=== PATIENT | male | born 1950 | race Caucasian/White ===

== ENCOUNTER 2025-05-22 08:37 | Outpatient (AMB) | payer MEDICARE, SELFPAY ==
--- NOTE | 2025-05-22 09:04 | AM.OFFWIN_ITS ---
Intake Vital Signs 05/22/25 09:05 Height 5 ft 8 in Weight 194 lb BMI 29.5 BP 80/56 L Blood Pressure Location Lt brachial Position Sitting Pulse 64 Pulse Source Pulse Oximeter Temp 97.9 F Temp Source Oral Pulse Oximetry (%) 98 Oxygen Delivery Method Room Air Intake Visit Reasons: [employer] Swollen & itchy LT eye Intake Note: presents with redness and swelling to face, right forearm and left eye and also with weeping to left eye 2 days Allergies No Known Allergies Allergy (Verified 05/22/25 09:07) Do you need a note to return to daycare/school/sports/work: No HPI HPI Comments History of Present Illness Details History of Present Illness - The patient is a 75-year-old male pres enting with swelling and redness around the left eye. - The swelling began after a visit to [facility] on Monday. - He states that he has no pain and does not know what he was exposed to. - His is present today she was the one that noticed swelling to the left eye Monday night. - By Monday morning, the eye was swol nevaeh shut, and leaking fluid. - He was red and swollen. - The condition has spread to the nose a nd face, with new red [place] appearing on top of his head. - Ice was applied without significant im provement. - Recent cataract surgery on the right e ye may be relevant. - He has a spot on his right forearm now . - He states that he has been feeling fin e. - He denies fever, chills, CP, SOB, whee zing, lip swelling, stridor, abd pain, n/v/d, joint pain or other rashes. Physical Exam General: Cooperative, healthy appearing, comfortable, no acute distress and well developed Head: Normal to inspection Ears: Swelling and erythema noted on the upper and lower eyelid of the left eye. Left eye discharge. PERRLA, EOMI. Periorbital swelling noted. Swellin to the right upper eyelid. Nose: Swollen with erythema and crusting noted. Face and sinus: Erythematous diffuse rash noted on the face bilaterally. No TTP of the facial bones. Eyes: Right eye swollen with periorbital cellulitis, recent cataract surgery noted Neck: Normal visual inspection and Yes full ROM. No lymphadenopathy noted. Respiratory: Normal respiratory effort and able to speak in complete sentences. Clear to auscultation bilaterally. No w/r/r noted. Cardiovascular: Regular rate and rhythm. Normal S1 and S2. Skin: Diffuse erythematous rash with warmth noted on the forehead, cheeks, nose, top of head. Dry and no discharge noted. Neuro: Patient oriented x3. CN 2-12 intact. Extremities: Normal to inspection Patient was informed and verbally consented to the use of an ambient scribe for clinic note documentation during this visit. Review of Systems Const All systems reviewed & are unremarkable except as noted in HPI and below Physical Exam Vital Signs: Last Vital Signs Temp 97.9 F 05/22/25 09:05 Pulse 64 05/22/25 09:05 BP 80/56 L 05/22/25 09:05 Pulse Ox 98 05/22/25 09:05 Oxygen Delivery Method Room Air 05/22/25 09:05 BMI result Body Mass Index 29.5 Assessment & Plan Assessment & Plan (1) Periorbital cellulitis of left eye: Code(s): L03.213 - Periorbital cellulitis (2) Hypotension: Code(s): I95.9 - Hypotension, unspecified Qualifiers: Hypotension type: unspecified hypotension type Qualified Code(s): I95.9 - Hypotension, unspecified (3) Facial cellulitis: Code(s): L03.211 - Cellulitis of face Plan Most likely periorbital cellulitis with a facial cellulitis and hypotension Plan - Hospital admission for intravenous antibiotics is being considered due to the rapid progression of periorbital cellulitis. - Patient will go by private vehicle with his to [facility] - Called in an expect to the ER. Coding Level of Care Code Est Pt Level 4 (92350) Diagnoses Periorbital cellulitis of left eye L03.213 Hypotension, unspecified hypotension type I95.9 Hypotension type: unspecified hypotension type Facial cellulitis L03.211
[2025-05-22 09:05] VITALS: BP 80/56; PULSE 64; TEMP 36.6; O2SAT 98; BMI 29.5
== END 2025-05-22 09:58 | disposition home or self-care (01) ==
PROVIDERS: Visit Provider Physician Assistant Medical
DX: L03.213 Periorbital cellulitis (principal); I95.9 Hypotension, unspecified; L03.211 Cellulitis of face

== ENCOUNTER → 2025-05-22 08:37 | Outpatient (BNVA) | payer BC, SELFPAY | PROVIDERS: Visit Provider Physician Assistant Medical | DX: L03.213 Periorbital cellulitis (principal); I95.9 Hypotension, unspecified; L03.211 Cellulitis of face | CPT/HCPCS: 99212 ==